=== PATIENT | male | born 2005 | race Two or more races ===

== ENCOUNTER 2025-06-20 23:31 | Emergency (ER) | payer OTHER, SELFPAY ==
[2025-06-20 23:32] VITALS: BMI 26.5
[2025-06-20 23:39] VITALS: BP 128/67; PULSE 60; RESP 18; TEMP 36.8; O2SAT 98
--- NOTE | 2025-06-20 23:57 | EDNOTE_ITS ---
ED Eye Problem RME/HPI General Chief complaint: Eye Problems Stated complaint: INSULATION IN RT EYE Time Seen by Provider: 06/20/25 23:42 Source: patient, RN notes reviewed and old records reviewed Arrival date/time: 06/20/25 23:31 Mode of arrival: ambulatory Limitations: no limitations RME / HPI RME / HPI Narrative: 20yom presents to ED for right eye pain, FB sensation since this afternoon. Patient states he was lying in bed and something from ceiling fell into R eye. Patient flushed eye at home immediately but continues to have pain. No vision changes or eye drainage reported. Related Data Previous Rx's ?Medication ?Instructions ?Recorded diclofenac sodium 0.1 % eye drops 1 drp ophthalmic (ey e) Q6H PRN eye 06/21/25 pain #2.5 mL moxifloxacin 0.5 % eye drops 1 drp ophthalmic (eye) TI D 7 days 06/21/25 (Vigamox) #3 mL Allergies Allergy/AdvReac Type Severity Reaction Status Date / Time NKA* Allergy Uncoded 03/31/12 14:53 Review of Systems Review of Systems Systems Reviewed: All systems reviewed, normal except as documented Eyes Eyes: Denies blurry vision, Denies change in vision, Denies eye discharge and R eports irritation Comments: Reports redness Past Medical History Surgical History OTHER SURGICAL HX: b/l knees Social History SMOKING STATUS: Never smoker SUBSTANCE USE: does not use Past Medical History Comments PMH COMMENT: denies pmhx ED Exam General Limitations: Present no limitations General appearance: Present alert and in no apparent distress Head Head exam: Present atraumatic and normocephalic Eye Eye exam: Present PERRL, EOMI and conjunctival injection (right); Absent periorbital swelling ENT ENT exam: Present normal exam and mucous membranes moist Neck Neck exam: Present normal inspection and full ROM Chest Chest inspection: Present normal inspection and symmetric chest wall rise Respiratory Respiratory exam: Present normal lung sounds bilaterally; Absent respiratory distress Cardiovascular Cardiovascular exam: Present regular rate and normal rhythm Extremities Exam Extremities exam: Present normal inspection and full ROM Neurological Exam Neurological exam: Present alert and oriented X3 Psychiatric Psychiatric exam: Present normal affect and normal mood Skin Skin exam: Present warm, dry, intact and normal color; Absent rash Course Quality Measures none Orders Category Date Time Status Fluorescein Sodium [Bio-Rebekah] Med 06/20/25 23:56 Discontinued 1 mg RIGHT EYE X1 ONE TETRACAINE Op Jadyn 0.5% [Pontocaine Op Jadyn 0.5%] Med 06/20/25 23:56 Discontinued 1 drop RIGHT EYE X1 ONE Vital Signs Vital signs: Vital Signs Temperature 98.2 F 06/20/25 23:39 Pulse Rate 60 06/20/25 23:39 Respiratory Rate 18 06/20/25 23:39 Blood Pressure 128/67 06/20/25 23:39 Pulse Oximetry (%) 98 06/20/25 23:39 Oxygen Delivery Method Room Air 06/20/25 23:39 PROCEDURES: Gordillo Lamp Exam Right eye: Flourescein uptake:: Yes Gordillo Lamp Findings: Corneal abrasion Additional comments: Negative wilmer Eye MDM Narrative MDM Narrative:: 20yom presents to ED for right eye pain, FB sensation since this afternoon. Patient states he was lying in bed and something from ceiling fell into R eye. Patient flushed eye at home immediately but continues to have pain. No vision changes or eye drainage reported. Will treat for corneal abrasion, conjunctivitis of right eye. Encouraged cool compresses. Ophthalmology f/u as needed. Stable for dc, RTED precautions given. Patient data External records reviewed:: [facility] previous records (02/09/20 PT treatment for knee) Clinical information provided by:: patient Social determinants that could affect healthcare access:: none Patient has the following chronic illnesses:: none How is presenting disease/condition affected by chronic disease/condition?: no chronic disease Evaluation data The following diagnostics were reviewed and interpreted by me:: other (specify) (none) Lab and/or radiology exams considered but not ordered:: CT orbits: no history of eye trauma Interpretation Summary: na Medications / Prescriptions Medications or Prescriptions considered but not ordered:: none Medication administrations:: Medication Administration History Discontinued Medications Fluorescein Sodium (Fluorescein Sod 1 Mg Strp) 1 mg RIGHT EYE X1 ONE Stop: 06/20/25 23:57 Last Admin: 06/21/25 00:48 Dose: 1 mg Documented By: ERIK Tetracaine HCl (Tetracaine Pf Op Jadyn 0.5% 4 Ml Drpette) 1 drop RIGHT EYE X1 ONE Stop: 06/20/25 23:57 Last Admin: 06/21/25 00:48 Dose: 1 drop Documented By: ERIK Comments: admin by provider olivier above medications administered in ED Consultations Consultation(s) initiated? (list below): No Diagnosis Eye Problem Differential Diagnosis: corneal abrasion, conjunctivitis, acute iritis, hyphema, periorbital cellulitis, subconjunctival hemorrhage and corneal ulcer Most likely diagnosis given after review of the tests above:: corneal abrasion, conjunctivitis Admission Indicated Admission indicated?: not indicated Admission Request Was there a request for admission?: No Disposition Plan Disposition Plan: Discharge Discharge Attestation Discharge Attestation: The patient and all family members were given an opportunity to ask questions and understood the discharge instructions. Discharge instructions specifically effects, indications for sooner follow up or return to the emergency department, and the expected course of current diagnosis. Patient condition: Stable Discharge Plan Plan Patient Disposition: HOME (Self Care) Patient condition on transfer: Stable Prescriptions/Referrals Prescriptions/Med Rec: New moxifloxacin [Vigamox] 0.5 % drops 1 drp ophthalmic (eye) TID 7 Days Qty: 3 0RF diclofenac sodium 0.1 % drops 1 drp ophthalmic (eye) Q6H PRN (Reason: eye pain) Qty: 2.5 0RF Problem List Clinical Impression: Right cornea abrasion, Acute conjunctivitis, right eye Patient/Caregiver Discharge Instructions Education Materials: ED Corneal Abrasion Additional Instructions: Follow-up with ophthalmology in 2-3 days if symptoms persist or worsen. Print Language: Indonesian Stand Alone Forms: Deborah Award Info., Work/School Release, Patient Portal Info Letter PA/BUSHRA Supervising Physician PA/SUPERVISOR [employer]LOOR WORKER Supervising Physician: Kristie
[2025-06-21] MEDS: TETRACAINE PF OP SOL 0.5% 4 ML DRPETTE 1 DROP RIGHT EYE (00:48)
[2025-06-21] MEDS: FLUORESCEIN SOD 1 MG STRP RIGHT EYE (00:48)
== END 2025-06-21 00:49 | disposition home or self-care (01) ==
PROVIDERS: Emergency Provider Emergency Medicine
DX: S05.01XA Injury of conjunctiva and corneal abrasion without foreign body, right eye, initial encounter (principal); H10.31 Unspecified acute conjunctivitis, right eye; W20.8XXA Other cause of strike by thrown, projected or falling object, initial encounter
CPT/HCPCS: 99283